=== PATIENT | female | born 1980 | race Caucasian/White ===

== ENCOUNTER 2021-05-25 08:45 | Outpatient (CLI) | payer MEDICAID ==
[~2021-05-25 08:45] MED LIST: MECL-159 PO; MONT10TA21 PO; ONDA4TAB12 PO
== END 2021-05-25 23:59 | disposition home or self-care (01) ==
LOC: RAD 08:45
PROVIDERS: ATTEND Physician Assistant Medical
DX: R56.9 Unspecified convulsions (principal)
CPT/HCPCS: 95816